=== PATIENT | female | born 1955 | race African-American/Black ===

== ENCOUNTER 2016-11-30 00:15 | Emergency (ER) | payer MEDICARE, MEDICAID ==
[~2016-11-30] VITALS: Ht 175.3 cm; Wt 55.0 kg
[2016-11-30 00:19] VITALS: BP 160/105
[2016-11-30] MEDS ORDERED: AMLODIPINE 5MG TABLET PO ONE (08:00)
== END 2016-11-30 08:15 | disposition home or self-care (01) ==
LOC: ER 00:26
DX: Z76.0 Encounter for issue of repeat prescription (principal); I10 Essential (primary) hypertension; F41.9 Anxiety disorder, unspecified; F29 Unspecified psychosis not due to a substance or known physiological condition
CPT/HCPCS: 99283

== ENCOUNTER 2021-07-20 22:20 | Inpatient (IN) | payer MEDICARE, MEDICAID ==
[~2021-07-20] VITALS: Ht 167.6 cm; Wt 72.9 kg
[2021-07-21] MEDS ORDERED: MORPHINE SULFATE 4 MG/ML CPJ (NOT FOR IM USE) IV STA
[2021-07-21] MEDS ORDERED: SODIUM CHLORIDE 0.9% 1,000 ML IV ONE
[2021-07-21] MEDS ORDERED: ONDANSETRON HCL 4MG/2ML INJ IV STA
[2021-07-21 00:47] LABS: EOSINOPHILS % 1.1 % (0.0-5.0); HEMATOCRIT. 41.1 % (36.0-48.0); HEMOGLOBIN. 13.7 g/dL (12.0-16.0); LYMPHOCYTES % 25.1 % (20.0-50.0); MEAN CORPUSCULAR HEMOGLOBIN 28.7 pg (28.0-32.0); MEAN CORPUSCULAR VOLUME 85.8 fL (81.0-99.0); MEAN PLATELET VOLUME 7.8 fl (7.4-10.4); MONOCYTES % 7.2 % (2.0-8.0); NEUTROPHILS % 65.6 % (40.0-76.0); PLATELET 276 x1000/uL (130-400); RED BLOOD CELL COUNT 4.79 mill/uL (4.2-5.4); RED CELL DISTRIBUTION WIDTH 13.8 % (11.6-14.6)
[2021-07-21 00:55] LABS: CHLORIDE 109 mEq/L (98-107)
[2021-07-21] MEDS ORDERED: LORAZEPAM 2MG/ML CPJ IV ONE (01:15)
[2021-07-21 01:26] LABS: PARTIAL THROMBOPLASTIN TIME 29.1 sec (23.4-31.0); PROTHROMBIN TIME 10.5 sec (9.6-11.0)
[2021-07-21] MEDS ORDERED: IOHEXOL-300 100 ML BOTTLE ONE (05:35)
[2021-07-21 12:02] VITALS: BP 174/74
== END 2021-07-21 13:27 | disposition left against medical advice (07) | DRG 605 ==
LOC: ER 22:20 → MICUSO 07-21 04:32 → 7EST 07-21 12:20
PROVIDERS: ADMIT Family Medicine; ATTEND Family Medicine
DX: S00.03XA Contusion of scalp, initial encounter (principal); S02.2XXA Fracture of nasal bones, initial encounter for closed fracture; R10.9 Unspecified abdominal pain; Y08.89XA Assault by other specified means, initial encounter; I10 Essential (primary) hypertension; M25.511 Pain in right shoulder; M19.90 Unspecified osteoarthritis, unspecified site; R03.0 Elevated blood-pressure reading, without diagnosis of hypertension; Z53.29 Procedure and treatment not carried out because of patient's decision for other reasons; Z20.822 Contact with and (suspected) exposure to COVID-19; Y93.89 Activity, other specified; Y92.89 Other specified places as the place of occurrence of the external cause; Y99.8 Other external cause status
CPT/HCPCS: 36415; 70486; 71045; 71260; 73030; 74177; 80053; 83880; 84484; 85025; 86850; 86900; 87426; 93005; 99285; J2060; J2270; J2405; J7030; Q9967

== ENCOUNTER 2021-12-11 15:45 | Emergency (ER) | payer MEDICARE, MEDICAID ==
[~2021-12-11] VITALS: Ht 162.6 cm; Wt 63.0 kg
[2021-12-11] MEDS ORDERED: TETANUS, DIPHTHERIA, PERTUSSIS VAC/PF 0.5ML (>10YR OLD) IM ONE (16:15)
[2021-12-11] MEDS ORDERED: ACETAMINOPHEN 325MG TABLET PO ONE (16:15)
[2021-12-11] MEDS ORDERED: BACITRACIN ZINC OINT UDPKT TOP ONE (16:15)
[2021-12-11 17:20] VITALS: BP 141/96
== END 2021-12-11 17:24 ==
LOC: ER 15:45
DX: S00.212A Abrasion of left eyelid and periocular area, initial encounter (principal); H11.32 Conjunctival hemorrhage, left eye; S00.211A Abrasion of right eyelid and periocular area, initial encounter; I10 Essential (primary) hypertension; Y04.2XXA Assault by strike against or bumped into by another person, initial encounter; Y93.89 Activity, other specified; Y92.89 Other specified places as the place of occurrence of the external cause
CPT/HCPCS: 70486; 90471; 90715; 99284